=== PATIENT | female | born 1955 | race African-American/Black ===

== ENCOUNTER 2017-11-05 17:06 | Emergency (ER) | payer OTHER ==
[2017-11-05 18:25] LABS: ADD MAN DIFF? NO
[2017-11-05 18:39] LABS: BASO % 0 % (0-3); EOS # 0.2 x10^3/uL (0.0-0.7); EOS % 3 % (0-3); HEMATOCRIT 35.5 % (36.0-47.0); HEMOGLOBIN 11.6 g/dL (12.0-15.5); LYMPH # 0.6 x10^3/uL (1.0-4.8); LYMPH % 7 % (24-48); MEAN CORPUSCULAR HEMOGLOBIN 29 pg (25-35); MEAN CORPUSCULAR HGB CONC 33 g/dL (31-37); MEAN CORPUSCULAR VOLUME 88 fL (79-100); MONO # 0.9 x10^3/uL (0.0-1.1); MONO % 10 % (0-9); NEUT # 7.4 x10^3uL (1.8-7.7); NEUT % 81 % (31-73); PLATELET COUNT 305 x10^3/uL (140-400); RED BLOOD COUNT 4.05 x10^6/uL (3.50-5.40); RED CELL DISTRIBUTION WIDTH 14.7 % (11.5-14.5); WHITE BLOOD COUNT 9.1 x10^3/uL (4.0-11.0)
[2017-11-05 19:06] LABS: ANION GAP 11 (6-14); BLOOD UREA NITROGEN 11 mg/dL (7-20); CARBON DIOXIDE 22 mmol/L (21-32); CHLORIDE 103 mmol/L (98-107); CREATININE 0.6 mg/dL (0.6-1.0); GLUCOSE 113 mg/dL (70-99); SODIUM 136 mmol/L (136-145)
[2017-11-05 19:09] LABS: C-REACTIVE PROTEIN 15.1 mg/L (0-3.3)
[2017-11-05] MEDS: DIPHTH,PERTUSS(ACELL),TET TOX 0.5 ML DISP.SYRIN. VAX IM (19:10)
[2017-11-05 19:45] LABS: SEDIMENTATION RATE 57 (0-25)
== END 2017-11-05 21:20 ==
LOC: ER 17:06
DX: L97.529 Non-pressure chronic ulcer of other part of left foot with unspecified severity (principal); Z88.0 Allergy status to penicillin; Z88.8 Allergy status to other drugs, medicaments and biological substances
CPT/HCPCS: 36415; 73630; 80048; 85025; 85651; 86140; 90471; 90715; 99285-25